=== PATIENT | female | born 1935 | race Caucasian/White ===

== ENCOUNTER 2017-07-06 13:21 | Inpatient (IN) | payer OTHER ==
[~2017-07-06] VITALS: Ht 175.3 cm; Wt 86.2 kg
[2017-07-06] MEDS ORDERED: AVAPRO150 MG (13:30)
[2017-07-08] MEDS ORDERED: PERCOCET 5-3251 EACH PO (08:34)
[2017-07-08] MEDS ORDERED: COLACE100 MG PO (08:34)
== END 2017-07-08 13:29 | disposition home or self-care (01) | DRG 337 ==
LOC: ER 13:21 → SURG 18:12 → SEC-K 18:12 → SURG 22:36
PROVIDERS: Surgery
PROC: 0DNW4ZZ Release Peritoneum, Percutaneous Endoscopic Approach (ICD-10-PCS; 2017-07-06)
PROC: BW21ZZZ Computerized Tomography (CT Scan) of Abdomen and Pelvis (ICD-10-PCS; 2017-07-06)
PROC: 0DTJ4ZZ Resection of Appendix, Percutaneous Endoscopic Approach (ICD-10-PCS; principal; 2017-07-06 19:00)
DX: K35.89 Other acute appendicitis (principal); I10 Essential (primary) hypertension

== ENCOUNTER 2017-07-13 12:26 | Emergency (ER) | payer OTHER ==
[~2017-07-13] VITALS: Ht 172.7 cm; Wt 88.5 kg
[~2017-07-13 12:26] MED LIST: AVAPRO150 MG; COLACE100 MG PO; PERCOCET 5-3251 EACH PO
[2017-07-13] MEDS ORDERED: ASPIRIN81 MG PO (13:02)
== END 2017-07-13 17:15 | disposition home or self-care (01) ==
LOC: ER 12:26
DX: J22 Unspecified acute lower respiratory infection (principal); R50.9 Fever, unspecified

== ENCOUNTER → 2019-12-16 | Outpatient (CLI) | payer OTHER ==
[~2019-12-16] MED LIST changes: +ASPIRIN81 MG PO
== END | disposition home or self-care (01) ==
LOC: RAD 10:50
PROVIDERS: ATTEND Orthopaedic Surgery
DX: M17.0 Bilateral primary osteoarthritis of knee (principal); Z96.651 Presence of right artificial knee joint; Z76.89 Persons encountering health services in other specified circumstances; M79.652 Pain in left thigh; M79.605 Pain in left leg